=== PATIENT | female | born 1945 | race Caucasian/White ===

== ENCOUNTER 2018-04-24 23:56 | Emergency (ER) | payer MEDICARE, BC ==
[2018-04-25] MEDS ORDERED: diPHENhydraMINE IV* 50 MG/ML 1 ml VIAL (BENADRYL) IV ONE (00:39)
[2018-04-25] MEDS ORDERED: Famotidine IV* 10 MG/ML 2 ML (20 mg) IV SLOW PU ONE (00:39)
[2018-04-25] MEDS ORDERED: methylPREDNISolone 125 MG* 2 ML VIAL IV ONE (00:40)
[2018-04-25] MEDS ORDERED: NS 0.9% 1000 ML* 1,000 ML IV ONE (00:42)
--- NOTE | 2018-04-25 00:44 | ED ---
Allergic Reaction/Systemic - HPI Summary HPI Summary: This is Jonathan rendon, documenting for attending Linda Alexander MD. Pt is a 72 y/o F presents to ED s/p allergic reaction onset ~1999. Assoc. Sx: Rash, lip swelling. Denies: fever. Patient reports getting diffuse hives located on bilat arms and torso while sitting, watching a movie. She is unsure of what caused this reaction. She reports having shrimp for lunch and spaghetti for dinner which is not unusual for her. Patient also reports that she is not on any new medications. She reports having a similar reaction previously and that nothing makes the symptoms better or worse. - History of Current Complaint Chief Complaint: EDAllergicReaction Time Seen by Provider: 04/25/18 00:18 Hx Obtained From: Patient Onset/Duration: Gradual Onset, Started hours ago Timing: Constant Severity Currently: None Pain Intensity: 0 Pain Scale Used: 0-10 Numeric Location: Diffuse - Rash - bilat legs, abdomen Character: Swelling - lip Aggravating Factor(s): Nothing Alleviating Factor(s): Nothing Associated Signs And Symptoms: Positive: Rash, Other: - lip swelling - Allergies/Home Medications Allergies/Adverse Reactions: Allergies Allergy/AdvReac Type Severity Reaction Status Date / Time "strong pain killers" AdvReac Nausea And Uncoded 09/14/14 19:36 Vomiting narcotics AdvReac Nausea And Uncoded 09/14/14 19:36 Vomiting PMH/Surg Hx/FS Hx/Imm Hx Endocrine/Hematology History: Denies: Hx Diabetes Cardiovascular History: Denies: Hx Coronary Artery Disease, Hx Hypertension Musculoskeletal History: Denies: Hx Rheumatoid Arthritis, Hx Osteoporosis - Surgical History Surgery Procedure, Year, and Place: tibal ligation. exploratory breast biopsies Infectious Disease History: No Infectious Disease History: Denies: Traveled Outside the [place] in Last 30 Days - Family History Known Family History: Negative: Cardiac Disease, Hypertension, Diabetes - Social History Occupation: Employed Full-time Lives: With Family Alcohol Use: Weekly Substance Use Type: Reports: None Smoking Status (MU): Never Smoked Tobacco Review of Systems Negative: Fever Positive: Rash - Maculopapular - bilat arms, abdomen All Other Systems Reviewed And Are Negative: Yes Physical Exam - Summary Physical Exam Summary: VITAL SIGNS: Reviewed. GENERAL: Patient is a well-developed and nourished female who is lying comfortable in the stretcher. Patient is not in any acute respiratory distress. HEAD AND FACE: No signs of trauma. No ecchymosis, hematomas or skull depressions. No sinus tenderness. EYES: PERRLA, EOMI x 2, No injected conjunctiva, no nystagmus. EARS: Hearing grossly intact. Ear canals and tympanic membranes are within normal limits. MOUTH: Oropharynx within normal limits. NECK: Supple, trachea is midline, no adenopathy, no JVD, no carotid bruit, no c- spine tenderness, neck with full ROM. CHEST: Symmetric, no tenderness at palpation LUNGS: Clear to auscultation bilaterally. No wheezing or crackles. CVS: Regular rate and rhythm, S1 and S2 present, no murmurs or gallops appreciated. ABDOMEN: Soft, non-tender. No signs of distention. No rebound no guarding, and no masses palpated. Bowel sounds are normal. EXTREMITIES: FROM in all major joints, no edema, no cyanosis or clubbing. NEURO: Alert and oriented x 3. No acute neurological deficits. Speech is normal and follows commands. SKIN: Dry and warm Triage Information Reviewed: Yes Vital Signs On Initial Exam: Initial Vitals Temp Pulse Resp BP Pulse Ox 98.2 F 59 16 165/82 99 04/25/18 00:01 04/25/18 00:01 04/25/18 00:01 04/25/18 00:01 04/25/18 00:01 Vital Signs Reviewed: Yes Diagnostics - Vital Signs Vital Signs Temp Pulse Resp BP Pulse Ox 04/25/18 00:01 98.2 F 59 16 165/82 99 - Laboratory Lab Statement: Any lab studies that have been ordered have been reviewed, and results considered in the medical decision making process. Allergic Reaction Course/Dx - Course Course Of Treatment: Provider treated patient for an allergic rxn. 0155 - Patient feels much better and will be D/C home with medications - Diagnoses Provider Diagnoses: Allergic reaction Discharge - Sign-Out/Discharge Documenting (check all that apply): Patient Departure - Discharge Plan Condition: Stable Disposition: HOME Prescriptions: hydrOXYzine pamoate [Vistaril] 25 mg PO Q6H PRN #30 capsule PRN Reason: Itching predniSONE TAB* [Deltasone TAB*] 50 mg PO DAILY #5 tab Patient Education Materials: General Allergic Reaction (ED) Referrals: Toni Del Real MD [Primary Care Provider] - 2 Days Additional Instructions: RETURN TO THE EMERGENCY DEPARTMENT FOR CHANGING OR WORSENING SYMPTOMS. FOLLOW UP WITH PCP IN 1-2 DAYS. - Attestation Statements Document Initiated by Scribe: Yes Documenting Scribe: Jonathan Patricio Provider For Whom Scribe is Documenting (Include Credential): Linda Alexander MD Scribe Attestation: Jonathan Nugent, scribed for Linda Alexander MD on 04/25/18 at 0227.
[2018-04-25 02:12] VITALS: BP 152/79
== END 2018-04-25 02:11 | disposition home or self-care (01) ==
LOC: ED 23:56
DX: T78.40XA Allergy, unspecified, initial encounter (principal); X58.XXXA Exposure to other specified factors, initial encounter; Z88.5 Allergy status to narcotic agent
CPT/HCPCS: 96374; 96375; 99282; J1200; J2930

== ENCOUNTER 2018-04-26 07:45 | Emergency (ER) | payer MEDICARE, BC ==
[2018-04-26 07:53] VITALS: BP 123/68
[2018-04-26] MEDS ORDERED: diPHENhydraMINE PO* 50 MG PO ONE (08:48)
--- NOTE | 2018-04-26 08:57 | UC ---
Skin Complaint HPI - HPI Summary HPI Summary: The patient is a 72-year-old female that was seen approximately 36 hours ago in the emergency room. She was seen at that time for urticaria and angioedema. She is given IV Solu-Medrol IV Benadryl and pecid. Her symptoms resolved. She was discharged on by mouth prednisone as well as Vistaril. She has been unable to fill her Vistaril prescription because it needs prior authorization. Is not taken today's dose of prednisone. She presents here because the hives have returned. No shortness of breath or angioedema. She denies being on any new medicines. She has had no recent illnesses. - History of Current Complaint Chief Complaint: UCRas Time Seen by Provider: 04/26/18 08:39 Stated Complaint: HIVES Hx Obtained From: Patient Onset/Duration: Gradual Onset, Lasting Hours Skin Exposure Onset/Duration: Hours Ago Onset Severity: Moderate Current Severity: Moderate Pain Intensity: 0 Pain Scale Used: 0-10 Numeric Location: Diffuse Character: Pruritus, Hives Aggravating Factor(s): Nothing Alleviating Factor(s): Unknown Associated Signs & Symptoms: Positive: Rash - Allergy/Home Medications Allergies/Adverse Reactions: Allergies Allergy/AdvReac Type Severity Reaction Status Date / Time "strong pain killers" AdvReac Nausea And Uncoded 04/26/18 07:54 Vomiting narcotics AdvReac Nausea And Uncoded 04/26/18 07:54 Vomiting Review of Systems Constitutional: Negative Skin: Rash Eyes: Negative ENT: Negative Respiratory: Negative Cardiovascular: Negative Gastrointestinal: Negative Genitourinary: Negative Motor: Negative Neurovascular: Negative Musculoskeletal: Negative Neurological: Negative Psychological: Negative Is Patient Immunocompromised?: No All Other Systems Reviewed And Are Negative: Yes PMH/Surg Hx/FS Hx/Imm Hx Previously Healthy: Yes - Surgical History Surgical History: Yes Surgery Procedure, Year, and Place: tibal ligation. exploratory breast biopsies - Family History Known Family History: Negative: Cardiac Disease, Hypertension, Diabetes - Social History Alcohol Use: Weekly Substance Use Type: None Smoking Status (MU): Never Smoked Tobacco Physical Exam Triage Information Reviewed: Yes Appearance: Well-Appearing, No Pain Distress, Well-Nourished Vital Signs: Initial Vital Signs Temp 97.2 F 04/26/18 07:49 Pulse 61 04/26/18 07:49 Resp 18 04/26/18 07:49 BP 123/68 04/26/18 07:49 Pulse Ox 100 04/26/18 07:49 Vital Signs Reviewed: Yes Eyes: Positive: Conjunctiva Clear ENT: Positive: Hearing grossly normal, Uvula midline, Other - no intraoral edema. Negative: Nasal congestion, Nasal drainage, Trismus, Muffled voice, Hoarse voice Neck: Positive: Supple, Nontender Respiratory: Positive: Lungs clear, Normal breath sounds, No respiratory distress Cardiovascular: Positive: RRR, No Murmur Musculoskeletal: Positive: ROM Intact, No Edema Neurological: Positive: Alert Psychological Exam: Normal Skin Exam: Other - diffuse urticaria, no angioedema Course/Dx - Diagnoses Provider Diagnoses: urticaria Discharge - Sign-Out/Discharge Documenting (check all that apply): Patient Departure All imaging exams completed and their final reports reviewed: No Studies - Discharge Plan Condition: Stable Disposition: HOME Patient Education Materials: Urticaria (ED) Referrals: Toni Del Real MD [Primary Care Provider] - 3 Days (if not better recheck early next week) Additional Instructions: Suggestions: Continue prednisone (I would take it first thing in the morning) Because you are having trouble getting the visteril I suggest you take benadryl 25 mg 1-2 pills 4x day as needed for itching Cool aveeno baths may help The benadryl will cause drowsiness - Billing Disposition and Condition Condition: STABLE Disposition: Home
== END 2018-04-26 09:10 | disposition home or self-care (01) ==
LOC: UCEAST 07:45
DX: L50.9 Urticaria, unspecified (principal); Z88.5 Allergy status to narcotic agent
CPT/HCPCS: 99212; A9270-GY; G0463